=== PATIENT | female | born 1960 ===

== ENCOUNTER 2016-11-30 20:08 | Emergency (ER) | payer BC, MEDICAID ==
[2016-11-30 21:26] VITALS: BP 108/65; PULSE 69; RESP 18; TEMP 98.3; O2SAT 98
--- NOTE | 2016-11-30 22:49 | ED PDOC ---
Lower Extremity Pain/Injury Time Seen by Provider: 11/30/16 21:54 Chief Complaint (Nursing): Lower Extremity Problem/Injury Chief Complaint (Provider): Leg Swelling/Rash History Per: Patient History/Exam Limitations: no limitations Onset/Duration Of Symptoms: Days (x1 week) Current Symptoms Are (Timing): Still Present Additional Complaint(s): 21:54 Saumya Pelletier is a 56 year old female with a history of hypertension, high cholesterol, and gastritis, along with a past surgical history of vein surgery cholecystectomy, and eye surgery that presents to the ED with a chief complaint of a rash that began about one week ago, along with leg swelling that began around two days ago. Patient had vein surgery on her left leg on November 10, and went back for a revision on November 16, at which point she was started on Zarelto for one week to prevent DVT, as she has a history of DVT and PE post surgery. Patient first noticed the rash on her left leg one week ago on November 23, but noticed that it soon spread to her right leg as well, along with experiencing bilateral pedal edema. Patient denies any SOB, trauma, or chest pain. PMD: Andrew Lamar Past Medical History Reviewed: Historical Data, Nursing Documentation, Vital Signs Vital Signs: Last Vital Signs Temp 98.3 F 11/30/16 21:20 Pulse 69 11/30/16 21:20 Resp 18 11/30/16 21:20 BP 108/65 11/30/16 21:20 Pulse Ox 98 11/30/16 21:20 - Medical History PMH: Depression, Gastritis, HTN, Hypothyroidism, Pulmonary Embolism - Surgical History Surgical History: Cholecystectomy Other surgeries: vein surgery, eye surgery - Family History Family History: States: Unknown Family Hx, Hypertension - Social History Current smoker - smoking cessation education provided: No Alcohol: None - Immunization History Hx Tetanus Toxoid Vaccination: No Hx Influenza Vaccination: Yes Hx Pneumococcal Vaccination: No - Home Medications Home Medications: Ambulatory Orders Medication Instructions Recorded Crestor 10 mg PO DAILY 10/28/13 Lovaza 1 mg PO Q6 10/28/13 Nexium 45 mg PO DAILY 10/28/13 Synthroid 25 mcg PO DAILY 10/28/13 amLODIPine 10 mg PO DAILY 10/28/13 Sulfamethoxazole/Trimethopri 1 tab PO Q12 #14 tab 12/22/13 [Bactrim Ds 800 mg-160 mg] Clindamycin [Cleocin] 300 mg PO TID #21 cap 12/01/16 - Allergies Allergies/Adverse Reactions: Allergies Allergy/AdvReac Type Severity Reaction Status Date / Time neomycin Allergy Verified 11/30/16 22:03 Penicillins Allergy Verified 11/30/16 22:03 Review of Systems Constitutional: Negative for: Other (no trauma) Cardiovascular: Positive for: Edema (bilateral pedal edema). Negative for: Chest Pain Respiratory: Negative for: Shortness of Breath Skin: Positive for: Rash (bilaterally on lower legs) Physical Exam - Reviewed Nursing Documentation Reviewed: Yes Vital Signs Reviewed: Yes - Physical Exam Appears: Positive for: Non-toxic, No Acute Distress Skin: Positive for: Warm, Dry, Pallor, Rash (nonblanchin petechial rash on left medial lower leg, as ell as smaller rash on right medial lower leg. Pinpoint abrasion on left medial lower leg consistent with recent surgery. No purulent discharge.) Cardiovascular/Chest: Positive for: Regular Rate, Rhythm. Negative for: Murmur Respiratory: Positive for: Normal Breath Sounds. Negative for: Wheezing Extremity: Positive for: Pedal Edema (bilateral lower leg edema 1+, left leg is worse than right. ), Calf Tenderness (bilaterally) Neurologic/Psych: Positive for: Alert, Oriented - Laboratory Results Result Diagrams: 11/30/16 22:35 11/30/16 22:35 - ECG O2 Sat by Pulse Oximetry: 98 (RA) Pulse Ox Interpretation: Normal Medical Decision Making Medical Decision Makin:04 Initial Impression: Leg Swelling and Petechia, ddx include DVT vs. Coagulopathy vs. Cellulitis vs. CHF vs. Renal Insufficiency Initial Plan: * Type and screen * BNP * CMP * CBC * PTT * PT * Lactic Acid * Plasma * Blood culture * Blood, Glucose, POC * US Lower Extremities * Reevaluation * EXAM: US Duplex Bilateral Lower Extremity Veins CLINICAL HISTORY: 56 years old, female; Pain; Leg, lower; Bilateral; Additional info: Swelling h/ o dvt TECHNIQUE: Real-time ultrasound scan of the veins of the bilateral lower extremities with color Doppler flow, spectral waveform analysis and compression. COMPARISON: No relevant prior studies available. FINDINGS: Right deep veins: Normal color and spectral Doppler flow. Normal compressibility. No deep vein thrombosis from common femoral to popliteal vein. Right superficial veins: Unremarkable. Left deep veins: Normal color and spectral Doppler flow. Normal compressibility. No deep vein thrombosis from common femoral to popliteal vein. Left superficial veins: Thrombosis of LEFT greater saphenous vein. Soft tissues: No popliteal cyst. IMPRESSION: 1. No evidence of DVT within the lower extremities. 2. LEFT superficial thrombophlebitis. 3. Incidental/non-acute findings are described above. Thank you for allowing us to participate in the care of your patient. Dictated and Authenticated by: Andres Mays MD 11/30/2016 11:18 PM Eastern Time ([place] & [place]) Reviewed findings with pt. Pt to stop using the heavy compression stockings which she reports has been causing burning sensation to her legs. Will be rx antibiotics for possible erysipelas. Advised continue leg movement and elevation to improve swelling. Scribe Attestation: Documented by Marianen Flores, acting as a scribe for Rosita Duvall MD. Provider Scribe Attestation: All medical record entries made by the Scribe were at my direction and personally dictated by me. I have reviewed the chart and agree that the record accurately reflects my personal performance of the history, physical exam, medical decision making, and the department course for this patient. I have also personally directed, reviewed, and agree with the discharge instructions and disposition. Disposition - Clinical Impression Clinical Impression: Leg edema, Erysipelas Counseled Patient/Family Regarding: Studies Performed, Diagnosis, Need For Followup, Rx Given - Disposition Disposition: Routine/Home Disposition Time: 00:06 Condition: IMPROVED Additional Instructions: VISITA DR EMILIANO REYES A CHEQ[facility] DE [facility] A RECETO REGRESA SI [facility]. Prescriptions: Clindamycin [Cleocin] 300 mg PO TID #21 cap Instructions: Cellulitis (ED) Print Language: TAIWANESE
[2016-11-30 22:52] LABS: ALB/GLOB RATIO 1.4 (1.0-2.1); ALKALINE PHOSPHATASE 95 U/L (38-126); ALT/SGPT 55 U/L (9-52); AST/SGOT 36 U/L (14-36); BILIRUBIN,TOTAL 0.6 mg/dl (0.2-1.3); BLOOD UREA NITROGEN 19 mg/dl (7-17); CALCIUM 8.8 mg/dL (8.4-10.2); CARBON DIOXIDE 22 mmol/L (22-30); CHLORIDE 107 mmol/L (98-107); GFR AFRICAN-AMERICAN > 60; GLUCOSE,RANDOM 92 mg/dL (65-105); POTASSIUM 3.4 MMOL/L (3.6-5.0); SODIUM 138 mmol/l (132-148); TOTAL PROTEIN 6.6 G/DL (6.3-8.2)
[2016-11-30 23:02] LABS: BASO % 0.6 % (0.0-2.0); EOS # 0.3 K/uL (0.0-0.7); EOS % 4.5 % (0.0-4.0); HEMATOCRIT 37.4 % (34.0-47.0); LYMPH # 2.5 K/uL (1.0-4.3); MEAN CELL VOLUME 85.4 fl (81.0-99.0); MEAN CORPUSCULAR HGB CONC 33.9 g/dL (33.0-37.0); MEAN PLATELET VOLUME 8.5 fl (7.2-11.7); MONO # 0.4 K/uL (0.0-0.8); MONO % 7.2 % (0.0-10.0); NEUT # 2.7 K/uL (1.8-7.0); NEUT % 45.7 % (50.0-75.0); NRBC % 0.1 % (0.0-0.0); RED CELL DISTRIBUTION WIDTH 14.1 % (11.5-14.5)
[2016-11-30 23:06] LABS: PARTIAL THROMBOPLASTIN TIME 26.1 SECONDS (23.3-32.5)
--- NOTE | 2016-11-30 23:18 | US ---
EXAM: US Duplex Bilateral Lower Extremity Veins CLINICAL HISTORY: 56 years old, female; Pain; Leg, lower; Bilateral; Additional info: Swelling h/o dvt TECHNIQUE: Real-time ultrasound scan of the veins of the bilateral lower extremities with color Doppler flow, spectral waveform analysis and compression. COMPARISON: No relevant prior studies available. FINDINGS: Right deep veins: Normal color and spectral Doppler flow. Normal compressibility. No deep vein thrombosis from common femoral to popliteal vein. Right superficial veins: Unremarkable. Left deep veins: Normal color and spectral Doppler flow. Normal compressibility. No deep vein thrombosis from common femoral to popliteal vein. Left superficial veins: Thrombosis of LEFT greater saphenous vein. Soft tissues: No popliteal cyst. IMPRESSION: 1. No evidence of DVT within the lower extremities. 2. LEFT superficial thrombophlebitis. 3. Incidental/non-acute findings are described above.
== END 2016-12-01 00:50 | disposition home or self-care (01) ==
LOC: H.ER 20:08
DX: A46 Erysipelas (principal); R60.0 Localized edema; I10 Essential (primary) hypertension; Z86.711 Personal history of pulmonary embolism; Z86.718 Personal history of other venous thrombosis and embolism; Z88.0 Allergy status to penicillin; E78.00 Pure hypercholesterolemia, unspecified; Z79.01 Long term (current) use of anticoagulants